=== PATIENT | male | born 1980 | race Caucasian/White ===

== ENCOUNTER 2025-03-06 21:29 | Emergency (ER) | payer OTHER, SELFPAY ==
[2025-03-06 21:36] VITALS: BP 138/84; PULSE 109; RESP 20; TEMP 36.8; O2SAT 98; BMI 29.4
--- OUTSIDE RECORDS SUMMARY | 2025-03-06 22:06 | XMS_ITS | Clinical Summary ---
Author Organization [facility] Address [address] [place] [address] Care Team Providers Care Appeals Coordinator Name Role Phone Unavailable Primary Care Provider Unavailabl e Source Comments You are receiving this document as you are listed as the primary care provider,follow-up provider, or the patient has been referred to you for consultation.This is in compliance with the Medicare and[facility] Cent[facility]aid EHR Incentive Program,which states Providers who transition their patient to another setting of careor provider of care or refers their patient to another provider of care shouldprovide summary care record for each transition of care or referral. [employer] Allergies Active Allergy Reactions Criticality Noted Date Comments Other 02/22/2008 Ragweed; Inulin in some powder sports drinks. Tomato Gastrointestinal 02/04/2020 gassy Medications FLUoxetine (PROZAC) 20 MG capsule Take by mouth. 3 Active scopolamine (TRANSDERM-SCOP) 1.0mg/3 days patch 1 Patch every 72 hours. 3 Active ondansetron (ZOFRAN-ODT) 4 MG disintegrating tablet Take 1 Tablet (4 mg) by mouth every 8 hours as needed for Nausea. 20 Tablet 4 Active SUMAtriptan (IMITREX) 20 MG/ACT nasal solution Place 1 [place] (20 mg) into one nostril as needed for Headache. Use at onset. May repeat after 2 hours if needed. Max 2 sprays/day and 4 days/month 4 Each 1 4 Active Active Problems Problem Noted Date Diagnosed Date Upper airway resistance syndrome 03/24/2020 Overview (04/06/2020): Setting: APAP 5-15 Supplied by: [facility] PSG done: [email or web address] (Faxed 03-24-20) AHI 2 (EDS) RDI 7 Lowest O2 Sat: 90% [facility] 02-04-20 New/nasal; 03/24/20 [email or web address], 04-06-20 [facility] Family History Relation Name Status Comments Father (Age 66) prostat CA ,alcohol problem Mother Alive Sister 1 Alive Sister 2 Alive Sister 3 Alive Social History Tobacco Use Types Packs/Day Years Used Date Smoking Tobacco: Never Tobacco Cessation:Counseling Given: Not Answered Alcohol Use Standard Drinks/Week Comments No 0 (1 standard drink = 0.6 oz pure alcohol) Alcoholic Drinks/day: Freq:Never; Sex and Gender Information Value Date Recorded Sex Assigned at Not on file Legal Sex Male 12:35 AM CDT Gender Identity Not on file Sexual Orientation Not on file 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 Not on file Not on file Last Filed Vital Signs Vital Sign Reading Time Taken Comments Blood Pressure 121/95 03/19/2024 12:21 PM [employer] Pulse 63 03/19/2024 12:21 PM [employer] Temperature 36.8 C (98.2 F) 03/19/2024 12:21 PM [employer] Respiratory Rate 18 03/19/2024 12:21 PM [employer] Oxygen Saturation 100% 03/19/2024 12:21 PM [employer] Inhaled Oxygen Concentration - - Weight 88.5 kg (195 lb) 02/04/2020 2:13 PM CDT Height 176.5 cm (5' 9.5) 02/04/2020 2:13 PM CDT Body Mass Index 28.38 02/04/2020 2:13 PM CDT Plan of Treatment Health Maintenance Due Date Last Done Comments Hep C Screening (Preventive Services) 1980 HIV Screening (Preventive Services) 1996 Adult Preventive Visit 1998 DTaP/Tdap/Td Vaccine (1 - Tdap) 1999 HepB Vaccine (1) 1999 HPV Vaccine (1 - 3-dose SCDM series) 2007 Cholesterol 2015 COVID-19 Vaccine ( 2024-2 6 season) 2025 04/16/2021, 10/05/2020, 09/14/2020 Influenza Vaccine (#1) 2025 Zoster/Shingles Vaccine (1 o f 2) 2030 HepA Vaccine Aged Out No longer eligi ble based on patient's age to complete this topic Hib Vaccine Aged Out No longer eligi ble based on patient's age to complete this topic IPV (Polio) Vaccine Aged Out No longe r eligible based on patient's age to complete this topic MCV4 Vaccine Aged Out No longer eligi ble based on patient's age to complete this topic Meningococcal B Vaccine Aged Out No l onger eligible based on patient's age to complete this topic Pneumococcal Vaccine Aged Out No long er eligible based on patient's age to complete this topic Insurance [facility]
--- OUTSIDE RECORDS SUMMARY | 2025-03-06 22:06 | XMS_ITS | Clinical Summary ---
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 8.5 Each 4 Active scopolamine 1 mg over 3 days (TRANSDERM SCOP) patchIndications :Motion sickness, subsequent encounter Apply 1 Patch on dry, clean, hairless skin every 72 hours. 21 Patch 1 5 Active SUMAtriptan NASAL (IMITREX) 20 mg/actuation sprayIndications :Migraine with aura and without status migrainosus, not intractable 1 spray at onset of migraine. Repeat once if needed. Give at minimum 2hrs apart. Max Dose: 40mg per 24hrs. 6 Each 5 Active ondansetron (ZOFRAN) 8 mg tabletIndication s:Migraine with aura and without status migrainosus, not intractable Take 1 Tablet (8 mg) by mouth every 8 hours if needed for Nausea/Vomit ing. 30 Tablet 1 5 Active cyclobenzaprine (FLEXERIL) 10 mg tabletIndication s:Muscle spasm,Abdominal pain, RLQ (right lower quadrant),Abdomi nal pain, LLQ (left lower quadrant) Take 1 Tablet (10 mg) by mouth two times daily. 30 Tablet 5 Active cyclobenzaprine (FLEXERIL) 10 mg tabletIndication s:Muscle spasm,Abdominal pain, RLQ (right lower quadrant),Abdomi nal pain, LLQ (left lower quadrant) Take 1 Tablet (10 mg) by mouth two times daily for 15 days. 30 Tablet 5 02/11/20 25 Discontinu ed(Reorder (E-cancel not sent)) Active Problems Problem Noted Date Diagnosed Date Prediabetes 01/24/2022 Generalized anxiety disorder 03/23/2021 Migraine with aura and witho ut status migrainosus, not intractable 04/16/2018 Resolved Problems Problem Noted Date Diagnosed Date Resolved Date Obstructive sleep apnea syndrome 01/24/2020 01/24/2020 Encounters Date Type Department Care Team Description 02/14/2025 6:48 AM CDT - 02/14/2025 11:59 PM CDT [facility] [address] [address] Curry Minaya MD Ahlstrom, Leighlin M, PT 02/14/2025 Travel 02/10/[address] [address] Curyr Minaya MD Refill Request (Cyclobenzaprine 10 mg) 01/18/2025 7:10 PM CDT Office Visit [facility] [address] [address] Hair Kuo PA Abdominal Pain 01/18/2025 Travel 01/16/2025 2:00 PM CDT Orders Only [address] [address] <No scans attached> 01/16/2025 Travel 01/09/2025 1:25 PM CDT Office Visit [address] [address] Curry Minaya MD Pelvis Pain/problem (Michael Horse on Monday after working out at the gym) 01/09/2025 Travel from Last 3 Months Immunizations Immunization Administration Dates Next Due COVID-19 vaccine (Moderna Suresh luba 50mcg/0.25mL) PF, MDV 04/16/2021 COVID-19 vaccine (Pfizer-BioNTech 30mcg/0.3mL) P F, MDV 10/05/2020,09/14/2020 Social History Tobacco Use Types Packs/Day Years Used Date Smoking Tobacco: Never Smokeless Tobacco: Never Alcohol Use Standard Drinks/Week Comments Not Currently 0 (1 standard drink = 0.6 oz pur e alcohol) PHQ-2 Answer Date Recorded PHQ-2 TOTAL SCORE 1 06/26/2024 Social Connections Answer Date Recorded Do you often feel lonely or isolated from those around you? 0 01/18/2025 Financial Resource Strain Answer Date R ecorded Difficulty of Paying Living Expenses 3 01/09/2025 Difficulty of Paying Living Expenses Not on file 01/09/2025 Food Insecurity Answer Date Recorded Do you worry your food will run out before you are able to buy more? 1 01/18/2025 Transportation Needs Answer Date Record ed Does lack of transportation keep you from medica l appointments? 1 01/18/2025 Does lack of transportation keep you from work, meetings or getting things that you need? 1 01/18/2025 Housing Stability Answer Date Recorded What is your housing situation today? 1 01/18/2025 Utilities Answer Date Recorded Do you have trouble paying f or utilities (for example, heat, electricity, water, phone)? 1 01/18/2025 Sex and Gender Information Value Date Recorded Sex Assigned at Not on file Legal Sex Male 10:35 AM HOME APPLIANCE TECH Gender Identity Not on file Sexual Orientation Not on file Obstetrics History Last Filed Vital Signs Vital Sign Reading Time Taken Comments Blood Pressure 129/88 01/18/2025 7:15 PM CDT Pulse 74 01/18/2025 7:15 PM CDT Temperature 36.1 C (97 F) 01/18/2025 7:15 PM CDT Respiratory Rate 16 01/18/2025 7:15 PM CDT Oxygen Saturation 97% 01/18/2025 7:15 PM CDT Inhaled Oxygen Concentration - - Weight 93.4 kg (206 lb) 01/18/2025 7:15 PM CDT Height 177.8 cm (5' 10) 06/26/2024 9:36 AM HOME APPLIANCE TECH Body Mass Index 29.56 06/26/2024 9:36 AM HOME APPLIANCE TECH Plan of Treatment Upcoming Encounters Date Type Department Care Team (Late st Contact Info) Description 03/17/2025 1:45 PM HOME APPLIANCE TECH Appointment [facility] [place] [phone] Shaw Perez, PT [phone] Health Maintenance Due Date Last Done Comments Tetanus booster 1991 HIV for age 15-65 1995 Hepatitis C screening for age 18-79 1998 Hepatitis B series for 19+ (1 of 3 - 19+ 3-dose series) 1999 HPV series for age 9-45 (1 - 3-dose SCDM series) 2007 COVID-19 vaccine series ( season) 2025 04/16/2021, 10/05/2020, 09/14/2020 Influenza Vaccine (#1) 2025 BMI (ht and wt on same day) for age 18+ 06/26/2025 06/26/2024, 01/24/2022, 10/05/2021, Additional history exists Depression screening for age 12+ 06/26/2025 06/26/2024, 10/05/2021, 03/23/2021, Additional history exists Lipids for age 35-44 01/16/2030 01/16/2025 RSV vaccine for adults or (1 - 1-dose 75+ series) 2055 Pneumococcal series for age 6-49 Aged Out No longer eligible based on patient's age to complete this topic Procedures Procedure Name Priority Date/Time Associated Diagnosis Comments CBC W PLT NO DIFF Routine 01/16/2025 2:0 5 PM CDT Abdominal pain, LLQ (left lower quadrant) PSA TOTAL Routine 01/16/2025 2:05 PM CDT Screening for prostate cancer LIPID PANEL W REFLEX MEASURED LDL Routine 01/16/2025 2:05 PM CDT Lipid screening COMP METABOLIC PANEL Routine 01/16/2025 2:05 PM CDT Abdominal pain, LLQ (left lower quadrant) HEMOGLOBIN A1C Routine 01/16/2025 2:05 PM CDT Diabetes mellitus screening Prediabetes URINE CULTURE NOT INDICATED ([facility] REFLEX ONLY) Routine 01/09/2025 2:37 PM CDT Abdominal pain, LLQ (left lower quadrant) UA DIP W/REFLEX TO CULTURE ([facility]) Routine 01/09/2025 2:37 PM CDT Abdominal pain, LLQ (left lower quadrant) from Last 3 Months Results * HEMOGLOBIN A1C (01/16/2025 2:05 PM CDT) HEMOGLOBIN A1C 5.3 <5.7 % 01/17/2025 4:57 AM CDT [facility] Comment: For the purpose of screening for the presence of diabetes: <5.7% Consistent with the absence of diabetes 5.7-6.4% Consistent with increased risk for diabetes (prediabetes) > or =6.5% Consistent with diabetes This assay result is consistent with a decreased risk of diabetes. Currently, no consensus exists regarding use of hemoglobin A1c for diagnosis of diabetes in children. According to [place] Diabetes Association (ADA) guidelines, hemoglobin A1c <7.0% represents optimal control in non- diabetic patients. Different metrics may apply to specific patient populations. Standards of Medical Care in Diabetes(ADA). Blood BLOOD SPECIMEN / Unknown [facility] / Unknown 01/16/2025 2:05 PM CDT 01/16/2025 2:05 PM CDT Curry Minaya MD CHEMISTRY Final R esult [facility] [id number] [place] [address], * LIPID PANEL W REFLEX MEASURED LDL (01/16/2025 2:05 PM CDT) CHOLESTEROL, TOTAL 148 <200 mg/dL 01/17/2025 5:09 AM CDT [facility] TRIGLYCERIDES 62 <150 mg/dL 01/17/2025 5:09 AM CDT [facility] HDL CHOLESTEROL 53 > OR = 40 mg/dL 01/17/2025 5:09 AM CDT [facility] NON HDL CHOLESTEROL 95 <130 mg/dL (calc) 01/17/2025 5:09 AM CDT [facility] Comment: For patients with diabetes plus 1 major ASCVD risk factor, treating to a non-HDL-C goal of <100 mg/dL (LDL-C of <70 mg/dL) is considered a therapeutic option. CHOL/HDLC RATIO 2.8 <5.0 (calc) 01/17/2025 5:09 AM CDT [facility] LDL-CHOLESTEROL 81 mg/dL (calc) 01/17/2025 5:09 AM CDT [facility] Comment: Reference range: <100 Desirable range <100 mg/dL for primary prevention; <70 mg/dL for patients with CHD or diabetic patients with > or = 2 CHD risk factors. LDL-C is now calculated using the Alvino-Mel calculation, which is a validated novel method providing better accuracy than the Friedewald equation in the estimation of LDL-C. Alvino SS et al. KIZZY. 2013;310(19): 3662-5037 (http://education.StemCyte.LocoX.com/faq/MYE542) Blood BLOOD SPECIMEN / Unknown [facility] / Unknown 01/16/2025 2:05 PM CDT 01/16/2025 2:05 PM CDT Curry Minaya MD CHEMISTRY Final R esult [facility] [address] [place] [address], * CBC W PLT NO DIFF (01/16/2025 2:05 PM CDT) WHITE BLOOD CELL COUNT 6.5 3.8 - 10.8 Thousand/u L 01/17/2025 4:00 AM CDT [facility] RED BLOOD CELL COUNT 5.43 4.20 - 5.80 Million/uL 01/17/2025 4:00 AM CDT [facility] HEMOGLOBIN 16.6 13.2 - 17.1 g/dL 01/17/2025 4:00 AM CDT [facility] HEMATOCRIT 49.8 38.5 - 50.0 % 01/17/2025 4:00 AM CDT [facility] MCV 91.7 80.0 - 100.0 fL 01/17/2025 4:00 AM CDT [facility] MCH 30.6 27.0 - 33.0 pg 01/17/2025 4:00 AM CDT [facility] MCHC 33.3 32.0 - 36.0 g/dL 01/17/2025 4:00 AM CDT [facility] Comment: For adults, a slight decrease in the calculated MCHC value (in the range of 30 to 32 g/dL) is most likely not clinically significant; however, it should be interpreted with caution in correlation with other red cell parameters and the patient's clinical condition. RDW 12.6 11.0 - 15.0 % 01/17/2025 4:00 AM CDT [facility] PLATELET COUNT 215 140 - 400 Thousand/u L 01/17/2025 4:00 AM CDT [facility] MPV 11.5 7.5 - 12.5 fL 01/17/2025 4:00 AM CDT [facility] Blood BLOOD SPECIMEN / Unknown [facility] / Unknown 01/16/2025 2:05 PM CDT 01/16/2025 2:05 PM CDT Curry Minaya MD HEMATOLOGY Final R esult [facility] [address] [place] [address], * PSA TOTAL (DIAG OR SCREEN) (01/16/2025 2:05 PM CDT) PSA, TOTAL 0.93 < OR = 4.00 ng/mL 01/17/2025 4:38 AM CDT [facility] Comment: The total PSA value from this assay system is standardized against the WHO standard. The test result will be approximately 20% lower when compared to the equimolar-standardized total PSA (Yemi Revere). Comparison of serial PSA results should be interpreted with this fact in mind. This test was performed using the Siemens chemiluminescent method. Values obtained from different assay methods cannot be used interchangeably. PSA levels, regardless of value, should not be interpreted as absolute evidence of the presence or absence of disease. Blood BLOOD SPECIMEN / Unknown [facility] / Unknown 01/16/2025 2:05 PM CDT 01/16/2025 2:05 PM CDT Curry Minaya MD CHEMISTRY Final R esult [facility] [address] [place] [address], * (ABNORMAL) COMP METABOLIC PANEL (01/16/2025 2:05 PM CDT) SODIUM 139 135 - 146 mmol/L 01/17/2025 5:09 AM CDT [facility] POTASSIUM 4.5 3.5 - 5.3 mmol/L 01/17/2025 5:09 AM CDT [facility] CHLORIDE 103 98 - 110 mmol/L 01/17/2025 5:09 AM CDT [facility] CARBON DIOXIDE 30 20 - 32 mmol/L 01/17/2025 5:09 AM CDT [facility] GLUCOSE 110(H) 65 - 99 mg/dL 01/17/2025 5:09 AM QRusoT [facility] Comment: Fasting reference interval For someone without known diabetes, a glucose value between 100 and 125 mg/dL is consistent with prediabetes and should be confirmed with a follow-up test. CALCIUM 9.4 8.6 - 10.3 mg/dL 01/17/2025 5:09 AM CDT [facility] CREATININE 1.28 0.60 - 1.29 mg/dL 01/17/2025 5:09 AM CDT [facility] BUN/CREATININE RATIO SEE NOTE: 6 - 22 (calc) 01/17/2025 5:09 AM QRusoT [facility] Comment: Not Reported: BUN and Creatinine are within reference range. EGFR 71 > OR = 60 mL/min/1. 73m2 01/17/2025 5:09 AM CDT [facility] ALBUMIN 4.6 3.6 - 5.1 g/dL 01/17/2025 5:09 AM CDT [facility] PROTEIN, TOTAL 6.8 6.1 - 8.1 g/dL 01/17/2025 5:09 AM CDT [facility] BILIRUBIN, TOTAL 1.0 0.2 - 1.2 mg/dL 01/17/2025 5:09 AM CDT [facility] ALKALINE PHOSPHATASE 63 36 - 130 U/L 01/17/2025 5:09 AM CDT [facility] ALT 13 9 - 46 U/L 01/17/2025 5:09 AM CDT [facility] AST 13 10 - 40 U/L 01/17/2025 5:09 AM CDT [facility] UREA NITROGEN (BUN) 19 7 - 25 mg/dL 01/17/2025 5:09 AM CDT [facility] GLOBULIN 2.2 1.9 - 3.7 g/dL (calc) 01/17/2025 5:09 AM CDT [facility] ALBUMIN/GLOBULI N RATIO 2.1 1.0 - 2.5 (calc) 01/17/2025 5:09 AM CDT [facility] Blood BLOOD SPECIMEN / Unknown [facility] / Unknown 01/16/2025 2:05 PM CDT 01/16/2025 2:05 PM CDT Curry Minaya MD CHEMISTRY Final R esult [facility] [address] [place] [address], * (ABNORMAL) UA Dip w/Reflex to Culture ([facility]) [[id number]] (01/09/2025 2:37 PM CDT) COLOR YELLOW YELLOW 01/09/2025 2:50 PM CDT [facility] APPEARANCE CLEAR CLEAR 01/09/2025 2:50 PM CDT [facility] SPECIFIC GRAVITY 1.020 1.001 - 1.035 01/09/2025 2:50 PM CDT [facility] PH 6.0 5.0 - 8.0 01/09/2025 2:50 PM CDT [facility] GLUCOSE TRACE(A) NEGATIVE 01/09/2025 2:50 PM CDT [facility] BILIRUBIN NEGATIVE NEGATIVE 01/09/2025 2:50 PM CDT [facility] KETONES NEGATIVE NEGATIVE 01/09/2025 2:50 PM CDT [facility] OCCULT BLOOD NEGATIVE NEGATIVE 01/09/2025 2:50 PM CDT [facility] PROTEIN NEGATIVE NEGATIVE 01/09/2025 2:50 PM CDT [facility] NITRITE NEGATIVE NEGATIVE 01/09/2025 2:50 PM CDT [facility] LEUKOCYTE ESTERASE NEGATIVE NEGATIVE 01/09/2025 2:50 PM CDT [facility] Urine URINE SPECIMEN / Unknown Non-Blood / Unknown 01/09/2025 2:37 PM CDT 01/09/2025 2:37 PM CDT Curry Minaya MD URINE Final R esult Performing Organization Address City/[facility]/ZIP Co de Phone Number [facility] [address] [address], [place] [phone] [address] * URINE CULTURE NOT INDICATED ([facility] REFLEX ONLY) (01/09/2025 2:37 PM CDT) URINE CULTURE NOT INDICATED SEE NOTE 01/09/2025 2:50 PM CDT [facility] Comment:NO CULTURE INDICATED Urine URINE SPECIMEN / Unknown Non-Blood / Unknown 01/09/2025 2:37 PM CDT 01/09/2025 2:37 PM CDT Curry Minaya MD URINE Final R esult [facility] [address] [address], [place] [phone] from Last 3 Months Insurance [facility] 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 PCP - General 04/16/18
[2025-03-06 22:18] LABS: Appearance Urine Clear (Clear)
[2025-03-06 22:26] LABS: Cannabinoid Screen Urine POSITIVE (Negative); Methamphetamines Screen Urine Negative (Negative); Tricyclic Antidepressant Urine Negative (Negative)
[2025-03-06 22:35] LABS: Albumin* 4.7 g/dL (3.3-5.0); Chloride* 103 mmol/L (96-114)
[2025-03-06 22:36] LABS: Potassium* 3.5 mmol/L (3.6-5.1); Sodium* 137 mmol/L (135-149)
[2025-03-06 22:38] LABS: Blood Urea Nitrogen* 20 mg/dL (5-24); Creatinine* 1.1 mg/dL (0.5-1.5); Est. Creatinine Clearance* 88.48; Estimated Glomerular Filt Rate 85 ml/min
--- NOTE | 2025-03-06 22:38 | CRLHL7_ITS ---
For Patients: As a result of the Century Cures Act, medical imaging exams and procedure reports are released immediately into your electronic medical record. You may view this report before your referring provider. If you have questions, please contact your health care provider. INDICATION: Abdominal pain, left lower quadrant. TECHNIQUE: CT of the abdomen and pelvis acquired with 101 cc Isovue 370 IV contrast. Coronal and sagittal reconstructions. COMPARISON: None. FINDINGS: Lower chest: Mild bibasilar dependent atelectasis. Liver: Normal in size and attenuation. No suspicious masses. Gallbladder and bile ducts: Unremarkable. No biliary dilation. Spleen: Unremarkable. Pancreas: Unremarkable. Adrenal glands: There is a 1.2 cm hypodense right adrenal nodule measuring 34 HU. The left adrenal gland is negative. Kidneys, Ureters, and Bladder: Symmetric enhancement. No hydronephrosis. No obstructing urinary calculi. Mild circumferential bladder wall thickening. Multiple pelvic phleboliths. Reproductive organs: Mildly enlarged prostate gland. GI tract/Peritoneum: No small bowel dilation. Moderate stool burden. Negative appendix. No intraperitoneal free air or fluid. Vasculature: Abdominal aorta is normal in caliber. Mesenteric arteries appear patent. Lymph nodes: No lymphadenopathy. Abdominal Wall: Small umbilical hernia containing fat and an omental vessel. Bones: Hemangioma in the T11 vertebral body. IMPRESSION: 1. Mild bladder wall thickening. Correlate with urinalysis. 2. Small indeterminate right adrenal nodule. This could be further evaluated with nonemergent adrenal protocol CT or MRI. 3. No other acute findings in the abdomen or pelvis. Please note that all CT scans at this facility use dose modulation, iterative reconstruction, and/or weight-based dosing when appropriate to reduce radiation dose to as low as reasonably achievable. Dictated by Rebeca Jimenez MD @ 03/06/2025 11:55:53 PM (Electronically Signed)
[2025-03-06 22:39] LABS: Alanine Aminotransferase* 18 U/L (4-50); Alkaline Phosphatase* 65 U/L (40-150); Anion Gap 8 mEq/L (7-15); Aspartate Amino Transferase* 25 U/L (12-35); Bilirubin Direct* 0.3 mg/dL (0.0-0.5); Bilirubin Total* 1.9 mg/dL (0.1-1.5); Calcium* 9.9 mg/dL (8.4-10.6); Carbon Dioxide* 26 mmol/L (20-32); Glucose* 111 mg/dL (60-115); Hematocrit* 47.5 % (37.0-53.0); Hemoglobin* 16.3 gm/dL (13.5-17.5); Immature Granulocytes Abs Auto 0.10 K/uL (0.00-0.30); Immature Granulocytes Pct Auto 1.1 %; Lymphocytes Absolute Auto 1.94 K/uL (0.90-2.90); Mean Corpuscular HGB Conc 34 gm/dL (32-36); Mean Corpuscular Hemoglobin 30 pg (26-34); Mean Corpuscular Volume 89 fL (80-100); RDW Coefficient of Variation % 11.9 % (11.5-15.5); Red Blood Count* 5.36 m/uL (4.30-5.90); Total Protein* 7.8 g/dL (6.0-8.3); White Blood Count* 9.22 K/uL (4.50-11.00)
[2025-03-06 22:43] LABS: Ethanol* < 0.01 % (0.01-0.03)
[2025-03-06 22:44] LABS: Slide Review Reflex No
[2025-03-06 22:56] LABS: Procalcitonin* 0.06 ng/mL (<0.50)
--- NOTE | 2025-03-06 23:21 | ED.ABDPAIN ---
HPI - Abdominal Pain General Date Seen: 03/06/25 Chief Complaint: Abdominal Pain Stated Complaint: trouble breathing Time Seen by Provider: 03/06/25 22:00 Source: patient, family, RN notes reviewed and old records reviewed Mode of arrival: ambulatory Limitations: no limitations History of Present Illness HPI narrative: Patient is a 44-year-old gentleman who had acute onset, of left lower quadrant pain, earlier today this lasted a couple hours, he says it is almost feels likes inside and not his abdomen it is so bad that when he takes a deep breath in seemingly is worse, he has been fighting this for couple months on off and the worst time for the 1st time it came on was at the gym. He get checked up by his primary care doctor said he did think it was a hernia, and wondered if it was more of a muscle type issue. Tonight it worsen. He has had no fevers or chills he has had normal bowel movements, no problems with urination no nausea vomiting associated with this. This correlated with going to the gym for the 1st time in months, last time it also happened at the gym. He presents now for help with this. He denies any diarrhea, denies any dysuria frequency denies any blood in his urine. Related Data Home Medications ?Medication ?Instructions ?Recorded ?Confirmed No Known Home Medications 03/06/25 03/06/25 Allergies Allergy/AdvReac Type Severity Reaction Status Date / Time No Known Drug Allergies Allergy Verified 03/06/25 23:08 Review of Systems Status of ROS Reports: 10 or more systems reviewed and unremarkable except as noted in History and below Exam Narrative: Exam Narrative: On examination in room 3 common he is very anxious gentleman, but nontoxic pupils equal round reactive to light there is no scleral icterus redness is TMs are normal his oropharynx normal there is no adenopathy anterior posterior chains chest is good air entry bilaterally no wheezing crackles noted his heart sounds are normal. Abdomen is soft there is no guarding, no a paddle megaly. Bowel sounds are normal, when he lifts up his groins bilaterally. He knee her lifts up his hips. In flexion he notices some discomfort. But he is able lift up both of his legs laying down with no problems at all there is no masses or swellings to suggest inguinal hernias, testicles both descended and normal, bowel sounds are normal skin reveals no petechiae rashes. Const: Vital Signs, click to edit/add: Vital Signs - 24 hr 03/06/25 21:36 Temperature 98.3 F Pulse Rate [Pulse Oximeter] 109 H Respiratory Rate 20 Blood Pressure [Ri ght Upper Arm] 138/84 Pulse Oximetry 98 Oxygen Delivery Me thod Room Air Documenting provider has reviewed patient's vital signs: yes Course Course ED Course: Discussed with the patient is a small right adrenal nodule, that will need follow-up with an MRI. No evidence of any acute problem with his abdomen on radiologic examination, there was some thickening of his bladder, but his your urine does not look like cystitis. We will grow was urine see at this shows, 1 of the things that I explained him can cause some of his symptoms at least would be prostatitis, and I recommend follow-up with his primary care physician for this. He also may need to see orthopedics for his muscle issues. Tonight there is no other emergent thing seen on his CT, which is reassuring. He was comfortable this plan, Vital Signs Vital signs: Initial Vital Signs Temperature 98.3 F 03/06/25 21:36 Temperature Source Temporal Artery Scan 03/06/25 21:36 Pulse Rate 109 H 03/06/25 21:36 Respiratory Rate 20 03/06/25 21:36 Blood Pressure 138/84 03/06/25 21:36 Blood Pressure Mean 102 03/06/25 21:36 Blood Pressure Position Sitting 03/06/25 21:36 Pulse Oximetry 98 03/06/25 21:36 Oxygen Delivery Method Room Air 03/06/25 21:36 Vital Signs Temperature 98.3 F 03/06/25 21:36 Pulse Rate 109 H 03/06/25 21:36 Respiratory Rate 20 03/06/25 21:36 Blood Pressure 138/84 03/06/25 21:36 Pulse Oximetry 98 03/06/25 21:36 Oxygen Delivery Method Room Air 03/06/25 21:36 Temperature 98.3 F 03/06/25 21:36 Pulse Rate 109 H 03/06/25 21:36 Respiratory Rate 20 03/06/25 21:36 Blood Pressure 138/84 03/06/25 21:36 Pulse Oximetry 98 03/06/25 21:36 Oxygen Delivery Method Room Air 03/06/25 21:36 Medications Administered Medications: Discontinued Medications Generic Name Dose Route Start Last Admin Trade Name Freq PRN Reason Stop Dose Admin Sodium Chloride 1,000 mls @ 1,000 mls/hr 03/06/25 22:00 03/06/25 23:36 0.9 % Sodium Chloride 1000 Ml IV 03/06/25 22:59 Infused .Q1H GEORGETTE Infusion Ketorolac Tromethamine 30 mg 03/06/25 22:00 03/06/25 22:27 Ketorolac 30 Mg/Ml Inj IVP 03/06/25 22:01 30 mg ONCE ONE Administration Lorazepam 1 mg 03/06/25 22:01 03/06/25 22:33 Lorazepam 2 Mg/Ml Inj IVP 03/06/25 22:02 1 mg ONCE ONE Administration MDM - Abdominal Pain MDM Narrative Medical decision making narrative: During this evaluation of this patient I considered multiple differential diagnosis is which included the life-threatening such as appendicitis, aortic aneurysm, mesenteric ischemia, bowel perforation, volvulus, and bowel obstruction. Other differential diagnosis is include but are not limited to cholecystitis, pancreatitis, hepatitis, gastritis, GERD, diverticulitis, peptic ulcer disease, pyelonephritis/UTI, renal colic/stone, testicular torsion as well as other acute scrotal processes, inflammatory bowel disease, as well as other etiologies Medical Records Attestation: I reviewed the patient's medical records. Lab Data Attestation: I reviewed the patient's lab results. Labs: Lab Results 03/06/25 03/06/25 Range/Units 22:06 22:10 WBC 9.22 (4.50-11.00) K/uL RBC 5.36 (4.30-5.90) m/uL Hgb 16.3 (13.5-17.5) gm/dL Hct 47.5 (37.0-53.0) % MCV 89 (80-100) fL MCH 30 (26-34) pg MCHC 34 (32-36) gm/dL RDW Coeff of Parris 11.9 (11.5-15.5) % Plt Count 242 (140-440) K/uL Neut % (Auto) 71.1 (42.0-72.0) % Lymph % (Auto) 21.0 (20-44) % [place] % (Auto) 6.4 (0.0-11.0) % Eos % (Auto) 0.2 (0.0-7.0) % Baso % (Auto) 0.2 (0.0-3.0) % Neut # (Auto) 6.55 (1.7-7.0) K/uL Lymph # (Auto) 1.94 (0.90-2.90) K/uL [place] # (Auto) 0.60 (0.00-0.90) K/UL Eos # (Auto) 0.02 (0.00-0.50) K/uL Baso # (Auto) 0.02 (0.00-0.30) K/uL Abs Immat Gran (auto) 0.10 (0.00-0.30) K/uL Imm/Tot Granulo (auto) 1.1 % Sodium 137 (135-149) mmol/L Potassium 3.5 L (3.6-5.1) mmol/L Chloride 103 (96-114) mmol/L Carbon Dioxide 26 (20-32) mmol/L Anion Gap 8 (7-15) mEq/L BUN 20 (5-24) mg/dL Creatinine 1.1 (0.5-1.5) mg/dL Estimated Creat Clear 88.48 Estimated GFR 85 ml/min Glucose 111 (60-115) mg/dL Calcium 9.9 (8.4-10.6) mg/dL Total Bilirubin 1.9 H (0.1-1.5) mg/dL Direct Bilirubin 0.3 (0.0-0.5) mg/dL AST 25 (12-35) U/L ALT 18 (4-50) U/L Alkaline Phosphatase 65 (40-150) U/L C-Reactive Protein < 0.5 L (0.5-1.0) mg/dL Total Protein 7.8 (6.0-8.3) g/dL Albumin 4.7 (3.3-5.0) g/dL Lipase 87 (23-300) U/L Procalcitonin 0.06 (<0.50) ng/mL Urine Color Yellow (Yellow) Urine Appearance Clear (Clear) Urine pH 6.0 (5.0-8.5) Ur Specific [place] >= 1.030 (1.000-1.030) Urine Protein Trace A (Negative) Urine Glucose (UA) Negative (Negative) Urine Ketones 2+ A (Negative) Urine Blood Negative (Negative) Urine Nitrite Negative (Negative) Urine Bilirubin Negative (Negative) Urine Urobilinogen 0.2 (0.2-1.0) Ur Leukocyte Esterase Negative (Negative) Urine RBC 0-2 (0-2) Urine WBC 2-5 (0-5) Ur Squamous Epith Cells None (None-Few) Urine Bacteria Few A (None) Fine Granular Casts Few A (None) Urine Mucus Moderate A (None) Urine Opiates Screen Negative (Negative) Ur Oxycodone Screen Negative (Negative) Urine Methadone Screen Negative (Negative) Ur Barbiturates Screen Negative (Negative) U Tricyclic Antidepress Negative (Negative) Ur Phencyclidine Scrn Negative (Negative) Ur Amphetamines Screen Negative (Negative) U Methamphetamines Scrn Negative (Negative) U Benzodiazepines Scrn Negative (Negative) Urine Cocaine Screen Negative (Negative) U Marijuana (THC) Screen POSITIVE A (Negative) Ur Drug Screen Comment See Note Ethyl Alcohol < 0.01 (0.01-0.03) % Imaging Data CT scan - abdomen: Attestation: I have reviewed the pertinent imaging results. My impression: No acute findings. Radiologist's impression: [place] [address] Diagnostic Imaging Report Patient: Piter Ramos MR#: [id number] : 1980 Acct:[id number] Loc: ED Service Date: 03/06/[address]: Ordering Physician: Ephraim Jones M.D. Date of Service: 03/06/25 Procedure(s): CT abdomen pelvis w con Accession Number(s): [id number] cc: Provider,Not a Local; Ephraim Jones M.D.~ For Patients: As a result of the Century Cures Act, medical imaging exams and procedure reports are released immediately into your electronic medical record. You may view this report before your referring provider. If you have questions, please contact your health care provider. INDICATION: Abdominal pain, left lower quadrant. TECHNIQUE: CT of the abdomen and pelvis acquired with 101 cc Isovue 370 IV contrast. Coronal and sagittal reconstructions. COMPARISON: None. FINDINGS: Lower chest: Mild bibasilar dependent atelectasis. Liver: Normal in size and attenuation. No suspicious masses. Gallbladder and bile ducts: Unremarkable. No biliary dilation. Spleen: Unremarkable. Pancreas: Unremarkable. Adrenal glands: There is a 1.2 cm hypodense right adrenal nodule measuring 34 HU. The left adrenal gland is negative. Kidneys, Ureters, and Bladder: Symmetric enhancement. No hydronephrosis. No obstructing urinary calculi. Mild circumferential bladder wall thickening. Multiple pelvic phleboliths. Reproductive organs: Mildly enlarged prostate gland. GI tract/Peritoneum: No small bowel dilation. Moderate stool burden. Negative appendix. No intraperitoneal free air or fluid. Vasculature: Abdominal aorta is normal in caliber. Mesenteric arteries appear patent. Lymph nodes: No lymphadenopathy. Abdominal Wall: Small umbilical hernia containing fat and an omental vessel. Bones: Hemangioma in the T11 vertebral body. IMPRESSION: 1. Mild bladder wall thickening. Correlate with urinalysis. 2. Small indeterminate right adrenal nodule. This could be further evaluated with nonemergent adrenal protocol CT or MRI. 3. No other acute findings in the abdomen or pelvis. Please note that all CT scans at this facility use dose modulation, iterative reconstruction, and/or weight-based dosing when appropriate to reduce radiation dose to as low as reasonably achievable. Dictated by Rebeca Jimenez MD @ 03/06/2025 11:55:53 PM (Electronically Signed) Discharge Plan Discharge Clinical Impression: Abdominal pain, Adrenal nodule Patient Disposition: Home w/ Parent or Adult Condition: Stable Instructions: Abdominal Pain (ED) Additional Instructions: As a discussed the viewed going home, following up with primary care. He will need an MRI, of your adrenal nodule, this can be set up at your convenience with your regular physician. One of the things that a I thought would be a possibility would be chronic prostatitis with your lower abdominal pressure. Would be okay to use Flexeril also for your discomfort, Orthopedics might be a reasonable thing also check into for your left hip and feeling of your hip flexor. Overall reassuring findings with the CT scan, and the remainder of your blood test. Activity Level: Light activity Discharge Diet: Regular Prescriptions: No Action No Known Home Medications Follow Up/Referrals: Provider,Not a Local [Primary Care Provider, Family Practice] Stand Alone Forms: [employer] Info Instructions
== END 2025-03-07 01:38 | disposition home or self-care (01) ==
PROVIDERS: Emergency Provider Family Medicine
DX: R10.32 Left lower quadrant pain (principal); E27.9 Disorder of adrenal gland, unspecified
CPT/HCPCS: 36415; 74177; 80048; 80076; 80306; 81001; 82077; 83690; 84145; 85025; 86140; 87086; 96361; 96374; 96375; 99284; 99285; J1885; J2060; J7030; Q9967